=== PATIENT | male | born 1995 | race Caucasian/White ===

== ENCOUNTER 2020-02-12 17:06 | Emergency (ER) | payer OTHER ==
--- NOTE | 2020-02-12 18:51 | XRAY Report ---
PROCEDURE: Chest 1 View X-Ray INDICATIONS: COUGH, CHEST CONGESTION TECHNIQUE: One view of the chest was acquired. COMPARISON: None available FINDINGS: Surgical changes and devices: None. Lungs and pleura: No pleural effusions or pneumothorax. Right perihilar fullness is seen. Mediastinum: Mediastinal contours appear normal. Heart size is normal. Bones and chest wall: No suspicious bony lesions. Overlying soft tissues appear unremarkable. IMPRESSION: Right perihilar fullness is seen, which may reflect infiltrate. Please consider a short-term follow-up 2 view chest series (performed in deep inspiration) for furthe r evaluation. Reviewed by: Nawaf Miner MD on 02/12/2020 5:50 PM [facility] Approved by: Nawaf Miner MD on 02/12/2020 5:50 PM [facility] Station ID: [id number]
--- NOTE | 2020-02-12 19:00 | ED Physician Documentation ---
History of Present Illness - Stated complaint Stated Complaint: BODY ACHES/COUGH/STUFFY NOSE - Chief complaint Chief Complaint: General - Additonal information Additional information: 24-year-old male previously healthy no known drug allergies presents with 3 days of body aches chest congestion and cough productive of green sputum. No fevers chills, no known sick contacts. No chest pain shortness of breath leg swelling. Also with URI symptoms. Patient requesting Covid test. Review of Systems Ten Systems: 10 systems reviewed and negative Constitutional: reports: Myalgias. denies: Fever, Chills Nose: reports: Rhinorrhea / runny nose, Congestion Respiratory: reports: Cough PD PAST MEDICAL HISTORY - Past Medical History Cardiovascular: None Respiratory: None Neuro: None Endocrine/Autoimmune: None GI: None : None HEENT: None Psych: None Musculoskeletal: None Derm: None - Past Surgical History Past Surgical History: Yes - Present Medications Home Medications: Ambulatory Orders Medication Instructions Recorded Confirmed Azithromycin 500 mg PO 1-2XD 5 Days #6 tablet 02/12/20 - Allergies Allergies/Adverse Reactions: Allergies Allergy/AdvReac Type Severity Reaction Status Date / Time No Known Drug Allergies Allergy Verified 02/12/20 17:16 - Social History Does the pt smoke?: No Smoking Status: Never smoker Does the pt drink ETOH?: Yes ETOH Use: Liquor Does the pt have substance abuse?: No - Immunizations Immunizations are current?: Yes PD ED PE NORMAL - Vitals Vital signs reviewed: Yes - General General: Alert and oriented X 3 - HEENT HEENT: Atraumatic, PERRL, EOMI - Neck Neck: Supple, no meningeal sign - Cardiac Cardiac: RRR, No murmur, No gallop, No rub - Respiratory Respiratory: No respiratory distress, Clear bilaterally - Abdomen Abdomen: Soft, Non tender, Non distended - Derm Derm: Normal color, Warm and dry - Extremities Extremities: No edema - Neuro Neuro: Alert and oriented X 3 - Psych Psych: Normal mood Results - Vitals Vitals: Vital Signs - 24 hr 02/12/20 02/12/20 17:10 18:18 Temperature 36.3 C L 36.1 C L Heart Rate 92 88 Respiratory 16 16 Rate Blood Pressure 143/80 H 148/97 H O2 Saturation 99 100 Oxygen O2 Source Room air PD MEDICAL DECISION MAKING - ED course Complexity details: reviewed results ED course: 24-year-old man previously healthy with URI symptoms x3 days. Also with chest congestion. Covid swab sent. plan to quarantine pending results. Chest x-ray concerning for right sided perihilar fullness. Patient counseled re: need for short-term follow-up x-ray. Azithromycin sent. Departure - Departure Disposition: Home, Self Care Clinical Impression: Pneumonia Condition: Good Instructions: Pneumonia Dc Prescriptions: Azithromycin 500 mg PO 1-2XD 5 Days #6 tablet
[2020-02-12 19:14] VITALS: BP 129/81
== END 2020-02-12 19:14 | disposition home or self-care (01) ==
LOC: ED 17:06
DX: J18.9 Pneumonia, unspecified organism (principal); Z20.828 Contact with and (suspected) exposure to other viral communicable diseases
CPT/HCPCS: 71045; 99284

== ENCOUNTER 2021-05-31 12:47 | Emergency (ER) | payer OTHER ==
[2021-05-31 13:07] VITALS: BP 142/74
--- NOTE | 2021-05-31 13:09 | ED Physician Documentation ---
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 No other injuries. Declines pain medication. Review of Systems Constitutional: denies: Fever, Chills Cardiac: reports: Reviewed and negative Respiratory: reports: Reviewed and negative PD PAST MEDICAL HISTORY - Past Medical History Cardiovascular: None Respiratory: None Neuro: None Endocrine/Autoimmune: None GI: None : None HEENT: None Psych: None Musculoskeletal: None Derm: None - Past Surgical History Past Surgical History: Yes - Present Medications Home Medications: Ambulatory Orders Medication Instructions Recorded Confirmed No Known Home Medications 05/31/21 05/31/21 - Allergies Allergies/Adverse Reactions: Allergies Allergy/AdvReac Type Severity Reaction Status Date / Time No Known Drug Allergies Allergy Verified 05/31/21 13:07 - Social History Does the pt smoke?: No Smoking Status: Never smoker Does the pt drink ETOH?: Yes Does the pt have substance abuse?: No - Immunizations Immunizations are current?: Yes PD ED PE NORMAL - Vitals Vital signs reviewed: Yes - General General: Alert and oriented X 3, No acute distress - Derm Derm: Normal color, Warm and dry - Extremities Extremities: Other (Her and swollen over the distal dorsal ulna with some limited range of motion in flexion and extension of the wrist. No deformity.) - Neuro Neuro: Alert and oriented X 3, Normal speech Results - Vitals Vitals: Vital Signs - 24 hr 05/31/21 13:06 Temperature 36.9 C Heart Rate 90 Respiratory 16 Rate Blood Pressure 142/74 H O2 Saturation 97 Oxygen O2 Source Room air - Rads (name of study) 4 view x-ray of the left wrist is unremarkable Radiology: EMP read contemporaneously Departure - Departure Disposition: 01 Home, Self Care Clinical Impression: Contusion of left wrist Qualifiers: Encounter type: initial encounter Qualified Code(s): S60.212A - Contusion of left wrist, initial encounter Condition: Good Record reviewed to determine appropriate education?: Yes Instructions: ED Contusion Soft Tissue Comments: Ice and ibuprofen as needed for pain, recheck with your doctor in 2 weeks if not improved. Return for new or worsening symptoms.
--- NOTE | 2021-05-31 13:54 | XRAY Report ---
PROCEDURE: Wrist 4 View LT INDICATIONS: wrist pain TECHNIQUE: 4 views of the wrist were acquired. COMPARISON: None. FINDINGS: Bones: No fractures or dislocations. No suspicious bony lesions. Scaphoid view: The scaphoid appears intact. Soft tissues: No suspicious soft tissue calcifications. IMPRESSION: 1. No fracture or dislocation. Reviewed by: Main Soto MD on 05/31/2021 1:53 PM [facility] Approved by: Main Soto MD on 05/31/2021 1:53 PM [facility] Station ID: [id number]
== END 2021-05-31 14:02 | disposition home or self-care (01) ==
LOC: ED 12:47
DX: S60.212A Contusion of left wrist, initial encounter (principal); W01.198A Fall on same level from slipping, tripping and stumbling with subsequent striking against other object, initial encounter; Y93.89 Activity, other specified; Y92.002 Bathroom of unspecified non-institutional (private) residence as the place of occurrence of the external cause
CPT/HCPCS: 99282; 99283